=== PATIENT | female | born 1940 | race Caucasian/White ===

== ENCOUNTER → 2017-09-10 09:24 | Outpatient (CLI) | payer MEDICARE, SELFPAY ==
[2017-09-10 11:18] LABS: Hemoglobin A1C% w Est Avg Glu 7.5 % (4.0-6.0)
[2017-09-10 11:28] LABS: Creatinine Urine Random 20.6 mg/dL
[2017-09-10 11:33] LABS: Microalbumi Creatinin Ratio Ur 126.2 ug/mg CR (<30); Microalbumin Urine Random 2.6 mg/dL (0-1.6)
== END ==
PROVIDERS: PCP Internal Medicine; Visit Provider Internal Medicine
DX: E11.9 Type 2 diabetes mellitus without complications (principal)
CPT/HCPCS: 36415; 82043; 82570; 83036

== ENCOUNTER → 2017-11-21 08:59 | Outpatient (CLI) | payer MEDICARE, SELFPAY ==
[2017-11-21 10:44] LABS: Add Manual Diff / Slide Review NO; Basophils Percent Auto 0.8 % (0-2); Eosinophils Percent Auto 2.4 % (2-4); Hematocrit 40.4 % (36-46); Hemoglobin 13.5 g/dL (12.0-16.0); Lymphocytes Percent Auto 23.6 % (25-40); Mean Corpuscular HGB Conc 33.5 % (30-36); Mean Corpuscular Hemoglobin 29.3 PG (26-34); Mean Corpuscular Volume 87.5 fL (80-100); Monocytes Percent Auto 5.6 % (3-14); Neutrophils Absolute Auto 4000 /uL (3000-5900); Neutrophils Percent Auto 67.6 % (50-75); Platelet Count 201 X10^3/uL (150-400); Red Blood Cell Count 4.62 X10^6/uL (4.0-5.2); Red Cell Distribution Width 14.4 % (11.6-14.8)
[2017-11-21 10:45] LABS: Alanine Aminotransferase 37 IU/L (9-52); Albumin 4.3 g/dL (3.5-5.0); Albumin Globulin Ratio 1.7 (1.0-2.8); Alkaline Phosphatase 79 U/L (38-126); Aspartate Aminotransferase 25 IU/L (14-36); Bilirubin Total 0.4 mg/dL (0.2-1.3); Blood Urea Nitrogen 29 mg/dL (7-17); Calcium 9.7 mg/dL (8.4-10.2); Carbon Dioxide 26 mmol/L (22-32); Chloride 104 mmol/L (98-107); Cholesterol 163 mg/dL (140-199); Estimated Glomerular Filt Rate 54.1 mL/min (>60); Globulin 2.6 g/dL (1.7-4.1); Glucose 180 mg/dL (80-110); HDL Cholesterol 49 mg/dL (40-60); HEMOLYSIS 30 (0-50); LDL Cholesterol Calculated 69 mg/dL (<100); Sodium 142 mmol/L (137-145); Total Protein 6.9 g/dL (6.3-8.2); Triglycerides 225 mg/dL (35-150)
[2017-11-21 10:46] LABS: Hemoglobin A1C% w Est Avg Glu 7.8 % (4.0-6.0)
[2017-11-21 10:46] LABS: Creatinine Urine Random 38.3 mg/dL
[2017-11-21 10:55] LABS: Microalbumi Creatinin Ratio Ur 15.6 ug/mg CR (<30); Microalbumin Urine Random < 0.6 mg/dL (0-1.6)
[2017-11-21 11:15] LABS: Thyroid Stimulating Hormone 2.25 uIU/mL (0.47-4.68)
== END ==
PROVIDERS: Family Provider Internal Medicine; PCP Internal Medicine; Visit Provider Internal Medicine
DX: E11.9 Type 2 diabetes mellitus without complications (principal); I10 Essential (primary) hypertension
CPT/HCPCS: 36415; 80053; 80061; 82043; 82570; 83036; 84443; 85025

== ENCOUNTER → 2018-02-11 09:44 | Outpatient (CLI) | payer MEDICARE, SELFPAY ==
[2018-02-11 11:04] LABS: Hemoglobin A1C% w Est Avg Glu 7.7 % (4.0-6.0)
[2018-02-11 11:10] LABS: BUN Creatinine Ratio 25.6 (6-22); Blood Urea Nitrogen 23 mg/dL (7-17); Calcium 9.3 mg/dL (8.4-10.2); Carbon Dioxide 21 mmol/L (22-32); Chloride 101 mmol/L (98-107); Estimated Glomerular Filt Rate > 60.0 mL/min (>60); Glucose 144 mg/dL (80-110); HEMOLYSIS 21 (0-50); Sodium 137 mmol/L (137-145)
== END ==
PROVIDERS: PCP Internal Medicine; Visit Provider Internal Medicine
DX: E11.9 Type 2 diabetes mellitus without complications (principal); I10 Essential (primary) hypertension
CPT/HCPCS: 36415; 80048; 83036

== ENCOUNTER → 2018-09-06 12:04 | Outpatient (CLI) | payer MEDICARE, SELFPAY ==
--- NOTE | 2018-09-06 | DI.RAD.S_ITS ---
PROCEDURE: XR LUMBAR SPINE 2-3V INDICATIONS: LOW BACK PAIN TECHNIQUE: 3 views of the lumbar spine were acquired. COMPARISON: None. FINDINGS: Bones: 5 oxh-eoo-caxndia vertebrae are present. There is normal bony alignment except for slight anterolisthesis, grade 1, of L4 and L5. There is a rudimentary disc space at L5-S1. Facet osteoarthritis is moderately severe to severe at L4-5 and L5-S1.. No vertebral body compression fractures. No suspicious bony lesions. Soft tissues: Overlying bowel gas pattern is normal. No suspicious soft tissue calcifications. IMPRESSION: Moderately severe degenerative disc disease overall, with the most prominent degree of degeneration seen at L3-S1. Slight anterolisthesis of L4 on L5 is associated with prominent facet osteoarthritis allowing ligamentous laxity in this area. No acute or subacute compression fracture is found. Dictated by: Marquis Ceballos M.D. on 09/06/2018 at 14:37 Approved by: Marquis Ceballos M.D. on 09/06/2018 at 14:40
== END ==
PROVIDERS: Family Provider Internal Medicine; PCP Internal Medicine; Visit Provider Internal Medicine
DX: M54.5 Low back pain (principal); M51.16 Intervertebral disc disorders with radiculopathy, lumbar region; M51.17 Intervertebral disc disorders with radiculopathy, lumbosacral region; M47.26 Other spondylosis with radiculopathy, lumbar region; M47.27 Other spondylosis with radiculopathy, lumbosacral region
CPT/HCPCS: 72100

== ENCOUNTER → 2018-09-22 11:17 | Outpatient (CLI) | payer MEDICARE, SELFPAY ==
--- NOTE | 2018-09-22 | DI.RAD.S_ITS ---
PROCEDURE: XR FEMUR RT MIN 2V INDICATIONS: Right HIP PAIN/FEMUR PAIN TECHNIQUE: 4 views of the femur were acquired. COMPARISON: None. FINDINGS: Bones: No fractures or dislocations. No suspicious bony lesions. Mild right hip and knee joint degeneration. Soft tissues: No suspicious soft tissue calcifications or masses. Scattered vascular calcifications. IMPRESSION: No fracture. Dictated by: Graham Mixon M.D. on 09/23/2018 at 10:22 Approved by: Graham Mixon M.D. on 09/23/2018 at 10:24
== END ==
PROVIDERS: Family Provider Internal Medicine; PCP Internal Medicine; Visit Provider Internal Medicine
DX: M25.561 Pain in right knee (principal)
CPT/HCPCS: 73552

== ENCOUNTER → 2018-10-01 10:54 | Outpatient (CLI) | payer MEDICARE, SELFPAY ==
--- NOTE | 2018-10-01 | DI.US.S_ITS ---
PROCEDURE: US ARTERIAL DUPLEX LE RT INDICATIONS: Unspecified atherosclerosis TECHNIQUE: Color and pulse Doppler interrogation was performed of the right lower extremity arterial system, with image documentation. COMPARISON: None. FINDINGS: Common femoral artery: 97 cm/sec, with triphasic flow. Deep femoral artery: 76 cm/sec, with triphasic flow. Proximal superficial femoral artery: 101 cm/sec, with triphasic flow. Mid superficial femoral artery: 98 cm/sec, with triphasic flow. Distal superficial femoral artery: 97 cm/sec, with triphasic flow. Popliteal artery: 76 cm/sec, with triphasic flow. Posterior tibial artery: 71 cm/sec, with triphasic flow. Anterior tibial artery/dorsalis pedis: 69 cm/sec, with triphasic flow. Ferrara-scale imaging description: No hemodynamically significant stenosis of the right lower extremity. A hypoechoic avascular mass is noted within the anterior right thigh tissues which measures 3.4 x 2.3 x 0.6 cm and likely represents a small subcutaneous lipoma. IMPRESSION: 1. No hemodynamically significant stenosis of the right lower extremity. 2. 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 Please note, if there is rapid growth of this lesion, further characterization is warranted to exclude the very rare liposarcoma. Dictated by: Elina Lyon M.D. on 10/02/2018 at 7:59 Approved by: Elina Lyon M.D. on 10/02/2018 at 8:02
== END ==
PROVIDERS: Family Provider Internal Medicine; PCP Internal Medicine; Visit Provider Internal Medicine
DX: I70.90 Unspecified atherosclerosis (principal); M79.651 Pain in right thigh
CPT/HCPCS: 93926

== ENCOUNTER → 2021-01-18 11:48 | Outpatient (CLI) | payer MEDICARE, SELFPAY ==
--- NOTE | 2021-01-18 | DI.US.S_ITS ---
PROCEDURE: US RENAL COMPLETE INDICATIONS: CHRONIC KIDNEY DISEASE STAGE 3B TECHNIQUE: Real-time scanning was performed of the kidneys and bladder, with image documentation. COMPARISON: [facility], CT, ABDOMEN/PELVIS WITH CONTRAST, 05/30/2012, 10:25. FINDINGS: Kidneys: Right kidney measures 8.2 cm long; left kidney measures 10 cm long. Right renal cortical thickness is 1 cm; left renal cortical thickness is 1.1 cm. Renal cortical echotexture is normal. No hydronephrosis or nephrolithiasis. No suspicious solid mass lesions. Bladder: Pre-void bladder volume is 221.1 mL. Post-void residual is 0 mL. Pre-void images demonstrate no intraluminal masses or stones. On pre-void images, no ureteral jets are noted with color Doppler interrogation. (Of note, ureteral jets may not be detectable in up to 25% of cases due to insufficient differences in specific gravity between ureteral and bladder urine). Miscellaneous: No free pelvic fluid. IMPRESSION: No evidence of obstructive uropathy. Dictated by: Ean Santos M.D. on 01/18/2021 at 14:04 Approved by: Ean Santos M.D. on 01/18/2021 at 14:07
== END ==
PROVIDERS: Family Provider Internal Medicine; PCP Internal Medicine; Referring Provider Internal Medicine; Visit Provider Internal Medicine
DX: N18.32 Chronic kidney disease, stage 3b (principal)
CPT/HCPCS: 76770

== ENCOUNTER → 2021-10-21 16:30 | Outpatient (CLI) | payer MEDICARE, SELFPAY ==
[2021-10-21 17:12] LABS: Add Manual Diff / Slide Review NO; Basophils Absolute Auto 0 /uL (0-100); Basophils Percent Auto 0.4 % (0-2); Eosinophils Absolute Auto 200 /uL (0-450); Eosinophils Percent Auto 2.5 % (2-4); Hematocrit 36.2 % (36-46); Hemoglobin 12.2 g/dL (12.0-16.0); Lymphocytes Absolute Auto 1800 /uL (1100-4500); Lymphocytes Percent Auto 27.2 % (25-40); Mean Corpuscular HGB Conc 33.8 % (30-36); Mean Corpuscular Hemoglobin 29.5 PG (26-34); Mean Corpuscular Volume 87.3 fL (80-100); Monocytes Absolute Auto 400 /uL (0-900); Monocytes Percent Auto 6.6 % (3-14); Neutrophils Absolute Auto 4200 /uL (1500-7000); Neutrophils Percent Auto 63.3 % (50-75); Platelet Count 219 X10^3/uL (150-400); Red Blood Cell Count 4.15 X10^6/uL (4.0-5.2); Red Cell Distribution Width 15.5 % (11.6-14.8); White Blood Cell Count 6.7 X10^3/uL (4.5-11.0)
[2021-10-21 17:53] LABS: Alanine Aminotransferase 42 IU/L (<35); Albumin 4.2 g/dL (3.5-5.0); Albumin Globulin Ratio 1.7 (1.0-2.8); Alkaline Phosphatase 81 U/L (38-126); Amylase 54 U/L (30-110); Aspartate Aminotransferase 28 IU/L (14-36); BUN Creatinine Ratio 22.4 (6-22); Bilirubin Total 0.2 mg/dL (0.2-1.3); Blood Urea Nitrogen 24 mg/dL (7-17); Calcium 9.3 mg/dL (8.4-10.2); Carbon Dioxide 22 mmol/L (22-32); Chloride 102 mmol/L (98-107); Estimated Glomerular Filt Rate 53 mL/min (>60); Globulin 2.5 g/dL (1.7-4.1); Glucose 157 mg/dL (80-110); HEMOLYSIS < 15 (0-50); Potassium 4.7 mmol/L (3.4-5.1); Sodium 135 mmol/L (137-145); Total Protein 6.7 g/dL (6.3-8.2)
== END ==
PROVIDERS: Family Provider Internal Medicine; PCP Internal Medicine; Referring Provider Internal Medicine; Visit Provider Internal Medicine
DX: R10.11 Right upper quadrant pain (principal)
CPT/HCPCS: 36415; 80053; 82150; 85025

== ENCOUNTER → 2021-10-23 13:19 | Outpatient (CLI) | payer MEDICARE, SELFPAY ==
--- NOTE | 2021-10-23 | DI.CT.S_ITS ---
PROCEDURE: CT ABDOMEN PELVIS W CON INDICATIONS: Right upper quadrant pain TECHNIQUE: After the administration of oral and IV contrast, axial sections were acquired from the lung bases to the pubic symphysis. Coronal and sagittal reformats were performed. For radiation dose reduction, the following was used: automated exposure control, adjustment of mA and/or kV according to patient size. COMPARISON: [facility], CT, ABDOMEN/PELVIS WITH CONTRAST, 05/30/2012, 10:25. FINDINGS: Image quality: Excellent. Lung bases: Unremarkable. Heart: No significant findings. ABDOMEN: Liver: No focal lesion. Gallbladder: Absent. Biliary ducts: Not dilated. Pancreas: Fatty atrophy. Small calcifications at the head of the pancreas, (2/30), unchanged. This suggests chronic calcific pancreatitis. No peripancreatic fluid collection. Spleen: Unremarkable. Adrenal Glands: No nodule. Kidneys and Ureters: No hydronephrosis. Stomach and Bowel: Stomach, small bowel loops, and colon are unremarkable. Diverticulosis. Normal appendix. Peritoneum: No abnormal intraperitoneal fluid. No free air. Ventral Wall: No hernia. Abdominal Nodes: No retroperitoneal or mesenteric adenopathy by size criteria. Vessels: Aorta and inferior vena cava are normal in size. Moderate plaque. PELVIS: Pelvic Organs: Small right ovarian cyst measuring 1.5 cm. Retroverted uterus. Bladder: Unremarkable. Pelvic Nodes: No enlarged lymph nodes. Miscellaneous: No inguinal hernias are seen. Bones: No compression fracture. Bones appear osteopenic. Multilevel DDD. IMPRESSION: 1. No acute abnormality. No free fluid. 2. Findings of chronic calcific pancreatitis. No peripancreatic fluid collection. 3. Diverticulosis. Normal appendix. Dictated by: Chato Jaeger M.D. on 10/23/2021 at 18:40 Approved by: Chato Jaeger M.D. on 10/23/2021 at 18:52
== END ==
PROVIDERS: Family Provider Internal Medicine; PCP Internal Medicine; Referring Provider Internal Medicine; Visit Provider Internal Medicine
DX: R10.11 Right upper quadrant pain (principal); K57.90 Diverticulosis of intestine, part unspecified, without perforation or abscess without bleeding; N83.201 Unspecified ovarian cyst, right side
CPT/HCPCS: 74177; Q9967

== ENCOUNTER 2021-10-30 09:25 | Emergency (ER) | payer MEDICARE, SELFPAY ==
[2021-10-30] VITALS (16 sets, daily range): BP systolic 144–208; BP diastolic 69–93; PULSE 58–68; RESP 12–24; TEMP 36.8; O2SAT 97–100; BMI 33.8
--- NOTE | 2021-10-30 10:25 | ED_ITS ---
HPI - Abdominal Pain General Chief Complaint: Abdominal Pain Stated Complaint: Abd pain- states calcification in pancreas Time Seen by Provider: 10/30/21 10:24 Source: patient Mode of arrival: Ambulatory History of Present Illness HPI narrative: Patient is a 81-year-old female history of diabetes hypertension cholecystectomy presenting today with his epigastric pain. Decent been ongoing for a month. She has not been seen in the ED but did see her PCP who ordered an outpatient CT which showed calcification of the pancreas. She said yesterday her pain got to be significantly worse she describes as a pinching today she says it is not so bad. She denies any nausea vomiting no fever or chills. No real chest pain just stays in her epigastric region. Denies any alcohol use. Related Data Home Medications Medication Instructions Recorded Confirmed ASPIRIN (#ASPIR 81) 81 mg PO Q DAY ##0 04/14/11 02/15/18 CHOLECALCIFEROL (VITAMIN D3) 400 iu PO Q DAY ##0 04/14/11 02/15/18 (VITAMIN D) Calcium Carbonate/Vitamin D 1 cap PO Q DAY ##0 04/14/11 02/15/18 (#CALCIUM) Coenzyme Q10 (#COQ10) 30 mg PO ##0 04/14/11 02/15/18 MULTIVITAMIN (One Daily 1 tab PO Q DAY ##0 04/14/11 02/15/18 Multivitamin) nystatin 100,000 unit/mL oral 5 ml PO TID-QID ##240 06/11/16 02/15/18 suspension Previous Rx's Medication Instructions Recorded Ketoconazole 1 noe topical BID ##30 06/11/16 zoster vaccine live (PF) 19,400 0.5 ml SQ X1 #1 mL 09/08/16 unit/0.65 mL subcutaneous suspension (Zostavax (PF)) [CMP Estradiol 0.2%] 0 vaginal SEE INSTRUCTIONS ##30 02/25/17 Glucose: Test Strips 0 str QDAY ##100 05/26/17 Lancets ea QDAY ##100 05/26/17 nystatin 100,000 unit/mL oral 5 ml PO QIDP PRN #480 mL 06/22/17 suspension fluticasone propionate 50 1 spray intranasal DAILY #16 grams 11/30/17 mcg/actuation nasal spray,suspension varicella-zoster glycoE [id number] 0.5 ml IM ONCE #1 ea 11/30/17 adj(PF) 50 mcg/0.5 mL IM susp, kit (Shingrix (PF)) glipizide 5 mg tablet 15 mg PO BID #360 tabs 02/15/18 losartan 50 mg tablet (Cozaar) 50 mg PO DAILY #90 tabs 02/15/18 metformin 850 mg tablet 850 mg PO TID #360 tabs 02/15/18 Allergies Allergy/AdvReac Type Severity Reaction Status Date / Time iodine Allergy Severe NUMBNESS Unverified 11/30/17 10:13 TONGUE/HANDS/CONFUSION shellfish derived Allergy Severe CONFUSION/NUMBNESS Unverified 11/30/17 10:13 HANDS AND TONGUE - SHRIMP lisinopril AdvReac Mild COUGH Unverified 11/30/17 10:13 oxycodone AdvReac Mild NIGHTMARES Unverified 11/30/17 10:13 Review of Systems Review of Systems Narrative: GENERAL: Denies chills, fatigue, malaise, fever, sweats, travel HEENT: Denies sinus pain, ear pain, sore throat, difficulty swallowing, neck pain RESPIRATORY: Denies dyspnea, cough, wheezing, hemoptysis, sputum. CARDIOVASCULAR: Denies chest pain, palpitations, orthopnea, edema GASTROINTESTINAL: See HPI : Denies dysuria, frequency, incontinence, hematuria, urinary retention, flank pain. MUSCULOSKELETAL: Denies weakness, joint pain, or bony pain SKIN: No rash, no erythema, no pruritus NEUROLOGIC: Denies weakness, dizziness, headache, numbness, change in speech, confusion PSYCHIATRIC: No concerning psychosocial issues. 12 point review of systems is negative except for those stated above and HPI Patient History Medical History Abnormal Pap smear of cervix Diabetes mellitus Hyperlipidemia Hypertension Lichen sclerosus Post menopausal syndrome Surgical History Anesthesia History of biopsy (~05/13/11) History of breast biopsy (~2003) History of lumpectomy History of tonsillectomy and adenoidectomy (~1965) Status post laparoscopic cholecystectomy (05/27/05) Surgical procedure planned Surgical procedure planned (~04/2013) Umbilical hernia (~05/27/05) Ventral incisional hernia (~01/26/07) Family History Brother Suicide Hyperlipidemia Hypertension Father CAD (coronary artery disease) Hyperlipidemia Hypertension Mother Diabetes mellitus Sister Hyperlipidemia Sister Rheumatic fever Social History Smoking Status: Never smoker Smoking Status: Never smoker Exam Initial Vital Signs Initial Vital Signs: Vital Signs Pulse Rate 68 10/30/21 09:41 Pulse Oximetry 99 10/30/21 09:41 GENERAL: Alert pleasant 81-year-old female and in no acute distress. HEENT: Head atraumatic,EOMI, pupils reactive, face symmetric, moist mucous membranes CARDIOVASCULAR: Regular rate and rhythm without murmurs, rubs or gallops. RESPIRATORY: Breath sounds equal bilaterally, no wheezes rales or rhonchi. ABDOMEN: Soft, tender epigastric region no guarding no rebound negative Mandel sign EXTREMITIES: Normal range of motion, no clubbing or edema. Neurovascularly intact NEUROLOGICAL: Alert and oriented x4.Normal gait and speech. SKIN: Warm, dry, no laceration, no petechiae, no rashes or lesions. Course Orders Ordered: ED Orders 10/30/21 10:19 Comprehensive Metabolic Panel Stat Lipase Stat Troponin & CK Cardiac Panel Stat 10/30/21 10:30 XR chest 1V Stat 10/30/21 12:20 Complete Blood Count AUTO DIFF Stat 10/30/21 13:10 CT abdomen pelvis wo con Stat Discontinued Medications Acetaminophen (Acetaminophen 325 Mg Tablet) 650 mg PO NOW ONE Stop: 10/30/21 13:51 Last Admin: 10/30/21 13:56 Dose: 650 mg Documented By: LAURA Sodium Chloride (Normal Saline 0.9%) 1,000 mls @ 150 mls/hr IV CONT SHEN Last Infusion: 10/30/21 13:10 Dose: 0 mls/hr Documented By: Admin: 10/30/21 11:23 Dose: 150 mls/hr Documented By: LAURA Vital Signs Vital signs: Vital Signs - 8 hr 10/30/21 11:30 10/30/21 11:52 10/30/21 11:52 Pulse Rate 59 L 66 Respiratory Rate 16 24 Blood Pressure 198/84 H Pulse Oximetry 97 99 10/30/21 12:00 10/30/21 12:01 10/30/21 12:01 Pulse Rate 58 L 58 L Respiratory Rate 16 18 Blood Pressure 182/76 H Pulse Oximetry 99 99 10/30/21 12:30 10/30/21 12:32 10/30/21 12:32 Pulse Rate 63 66 Respiratory Rate 17 23 Blood Pressure 194/80 H Pulse Oximetry 99 100 10/30/21 13:00 10/30/21 13:01 10/30/21 13:01 Pulse Rate 65 64 Respiratory Rate 22 22 Blood Pressure 208/88 H Pulse Oximetry 99 99 10/30/21 13:49 10/30/21 13:57 10/30/21 13:57 Pulse Rate 63 Respiratory Rate 13 Blood Pressure 206/74 H Pulse Oximetry 98 98 10/30/21 14:08 Pulse Rate Respiratory Rate Blood Pressure 187/80 H Pulse Oximetry MDM - Abdominal Pain Lab Data Result diagrams: 10/30/21 12:20 10/30/21 10:19 Labs: Lab Results 10/30/21 10/30/21 10/30/21 Range/Units 10:19 10:19 12:20 WBC 6.3 (4.5-11.0) X10^3/uL RBC 3.88 L (4.0-5.2) X10^6/uL Hgb 11.6 L (12.0-16.0) g/dL Hct 34.1 L (36-46) % MCV 88.1 (80-100) fL MCH 29.9 (26-34) PG MCHC 33.9 (30-36) % RDW 15.6 H (11.6-14.8) % Plt Count 160 (150-400) X10^3/uL Neut % (Auto) 58.2 (50-75) % Lymph % (Auto) 31.2 (25-40) % [place] % (Auto) 7.2 (3-14) % Eos % (Auto) 2.8 (2-4) % Baso % (Auto) 0.6 (0-2) % Neut # (Auto) 3700 (2644-6055) /uL Lymph # (Auto) 2000 (5101-1138) /uL [place] # (Auto) 500 (0-900) /uL Eos # (Auto) 200 (0-450) /uL Baso # (Auto) 0 (0-100) /uL Sodium Cancelled 133 L Potassium Cancelled 5.1 Chloride Cancelled 102 Carbon Dioxide Cancelled 24 BUN Cancelled 24 H Creatinine Cancelled 1.03 Estimated GFR Cancelled 55 L BUN/Creatinine Ratio Cancelled 23.3 H Glucose Cancelled 142 H Calcium Cancelled 8.7 Total Bilirubin Cancelled 0.5 AST Cancelled 28 ALT Cancelled 26 Alkaline Phosphatase Cancelled 66 Total Creatine Kinase 37 (30-135) U/L CK-MB (CK-2) TNP CK-MB (CK-2) Rel Index TNP Troponin I < 0.012 (0.01-0.034) ng/mL Total Protein Cancelled 6.3 Albumin Cancelled 3.8 Globulin Cancelled 2.5 Albumin/Globulin Ratio Cancelled 1.5 Lipase Cancelled 109 Point of care testing: Urine Dip Bedside Urine Glucose Negative Bedside Urine Bilirubin - Negative Bedside Urine Ketone - Negative Urine Specific B[place] 1.01 Bedside Urine Occult Blood +/- Bedside Urine pH 6 Bedside Urine Protein - Negative Bedside Urine Urobilinogen - Negative Bedside Urine Nitrite - Negative Bedside Urine Leukocytes - Negative Esterase Imaging Data CT scan - abdomen/pelvis: Radiologist's Impression: [address] [place] [address] CT Scan Report Signed Patient: Breanna Woodson MR#: [id number] : 1940 Acct:[id number] Age/Sex: 81 / F Date of Service: 10/30/21 Loc: ED Accession Number: [id number] ?? Procedure: CT abdomen pelvis wo con Ordering Provider: Bisi Forman D.O. PROCEDURE:? CT ABDOMEN PELVIS WO CON ? INDICATIONS:? ruq pain ? TECHNIQUE:? Axial sections were acquired from the lung bases to the pubic symphysis.? Coronal and sagittal reformats were performed.? For radiation dose reduction, the following was used: ?automated exposure control, adjustment of mA and/or kV according to patient size.? ? COMPARISON:? [facility], CT, ABDOMEN/PELVIS WITH CONTRAST, 05/30/2012, 10:25.? [facility], CT, CT ABDOMEN PELVIS W CON, 10/23/2021, 14:47. ? FINDINGS:? Image quality:? Excellent.? ? Lung bases:? Unremarkable.? ? Heart:? No significant findings. ? URINARY: Right Kidney: ? No stones or hydronephrosis.? Right Ureter:? No hydroureter.? ? Left Kidney: ? No stones or hydronephrosis. Left Ureter:? No hydroureter.? ? Bladder:? Distended. No stones. ? ? ? ABDOMEN: Liver:? Unremarkable.? ? Gallbladder:? Absent.? ? Biliary ducts:? CBD is at the upper limits of normal.? Small calcifications in the region of the distal CBD or pancreatic head.? Calcification is seen in this region dating back to 2013. Pancreas:? Fatty atrophy.? No peripancreatic fluid collection. Spleen:? Unremarkable.? ? Adrenal Glands:? No nodule. ? Stomach and Bowel:? Stomach, small bowel loops, and colon are unremarkable.? Diverticulosis.? Normal appendix. Peritoneum:? No abnormal intraperitoneal fluid.? No free air.? ? Ventral Wall: ? No hernia.? Abdominal Nodes:? No enlarged retroperitoneal or mesenteric lymph nodes.? Vessels:? Aorta and inferior vena cava are normal in size.? ? PELVIS: Pelvic Organs:? No free fluid.? Postmenopausal uterus.? ? Pelvic Nodes: Unremarkable. Miscellaneous: No inguinal hernias are seen. ? ? ? Bones:? No suspicious lesion.? No compression fractures.? Multilevel DDD. ? IMPRESSION:? 1. No acute abnormality identified.? No free fluid. ? 2. Calcifications in the region of the pancreatic head/distal CBD.? This could be due to sequelae of chronic calcific pancreatitis or choledocholithiasis.? Recommend correlation with LFTs and bilirubin.? If bilirubin is elevated MRCP could be performed for further evaluation to exclude choledocholithiasis. ? 3. No kidney stones.? No hydronephrosis. ? 4. Diverticulosis.? Normal appendix.? Post cholecystectomy. ? ? ? Dictated by: Chato Jaeger M.D. on 10/30/2021 at 13:26 ? ? Approved by: Chato Jaeger M.D. on 10/30/2021 at 13:36? Chest x-ray: Radiologist's Impression: XRay Report Signed Patient: Breanna Woodson MR#: [id number] : 1940 Acct:[id number] Age/Sex: 81 / F Date of Service: 10/30/21 Loc: ED Accession Number: [id number] ?? Procedure: XR chest 1V Ordering Provider: Bisi Forman D.O. PROCEDURE:? XR CHEST 1V ? INDICATIONS:? chest pain ? TECHNIQUE:? One view of the chest was acquired.? ? COMPARISON:? None. ? FINDINGS:? ? Surgical changes and devices:? None.? ? Lungs and pleura:? Lungs are clear.? No pleural effusions or pneumothorax.? ? Mediastinum:? Mediastinal contours appear normal.? Heart size is normal.? ? Bones and chest wall:? No suspicious bony lesions.? Overlying soft tissues appear unremarkable.? ? IMPRESSION:? No acute cardiopulmonary pathology. ? ? Dictated by: Elmer Gonzalez M.D. on 10/30/2021 at 10:43 ? ? ECG Data Interpretation: Normal sinus rhythm rate 64 SD interval 148 QRS [address] changes or T- wave inversions MDM Narrative Medical decision making narrative: The patient has has some right upper quadrant pain. This is where she has her most pain. Blood work is overall during. No elevation of bilirubin liver enzymes or lipase. CT confirms a chronic ongoing calcified pancreatitis, not sure if this is actually causing her pain and discomfort. She is offered morphine for pain however she declines and takes Tylenol instead. She says she does not want anything stronger for pain. Cardiac workup is negative including EKG and troponin. At this time recommend outpatient follow-up with PCP. May need surgery referral if she continues to have problems. Discharge Plan Departure Patient Disposition: Home Clinical Impression: Pancreatic calcification Instructions: Chronic Pancreatitis Activity Restrictions/Additional Instructions: *You have been diagnosed with chronic pancreatitis *What to do: You do have calcification on her pancreas which may may not be causing some of ear pain. However your blood work is overall reassuring. *Continue to take medications as directed *Follow up with your primary care provider in 2-3 days or call [phone] *Return to ER if you should have persistent pain persistent vomiting or any new, worsening or concerning symptoms Prescriptions: No Action Calcium Carbonate/Vitamin D (#CALCIUM) 1 cap PO Q DAY Qty: 0 MULTIVITAMIN (One Daily Multivitamin) 1 tab PO Q DAY Qty: 0 CHOLECALCIFEROL (VITAMIN D3) (VITAMIN D) 400 iu PO Q DAY Qty: 0 Coenzyme Q10 (#COQ10) 30 mg PO Qty: 0 ASPIRIN (#ASPIR 81) 81 mg PO Q DAY Qty: 0 nystatin 100,000 UNIT/1 ML suspension 5 ml PO TID-QID Qty: 240 Ketoconazole 1 noe Topical BID Qty: 30 3RF zoster vaccine live (PF) [Zostavax (PF)] 19,400 UNIT/0.65 ML suspension for reconstitution 0.5 ml SQ X1 Qty: 1 0RF [CMP Estradiol 0.2%] 0 Vaginal SEE INSTRUCTIONS Qty: 30 1RF Glucose: Test Strips 0 str QDAY Qty: 100 PRNRF Lancets QDAY Qty: 100 PRNRF nystatin 100,000 UNIT/1 ML suspension 5 ml PO QIDP PRNQty: 480 3RF fluticasone propionate 50 mcg/actuation spray,suspension 1 spray NASAL DAILY Qty: 16 3RF Rx Instructions: administer into each nostril varicella-zoster [id number]-AS01B (PF) [Shingrix (PF)] 50 mcg/0.5 mL suspension for reconstitution 0.5 ml IM ONCE Qty: 1 0RF losartan [Cozaar] 50 mg tablet 50 mg PO DAILY Qty: 90 3RF metformin 850 mg tablet 850 mg PO TID Qty: 360 1RF glipizide 5 mg tablet 15 mg PO BID Qty: 360 1RF Referrals: Angie Natarajan ARNP [Primary Care Provider] - Visit Report Forms: Patient Portal/API
--- NOTE | 2021-10-30 10:30 | DI.RAD.S_ITS ---
PROCEDURE: XR CHEST 1V INDICATIONS: chest pain TECHNIQUE: One view of the chest was acquired. COMPARISON: None. FINDINGS: Surgical changes and devices: None. Lungs and pleura: Lungs are clear. No pleural effusions or pneumothorax. Mediastinum: Mediastinal contours appear normal. Heart size is normal. Bones and chest wall: No suspicious bony lesions. Overlying soft tissues appear unremarkable. IMPRESSION: No acute cardiopulmonary pathology. Dictated by: Elmer Gonzalez M.D. on 10/30/2021 at 10:43 Approved by: Elmer Gonzalez M.D. on 10/30/2021 at 10:43
[2021-10-30 10:51] LABS: Alanine Aminotransferase 26 IU/L (<35); Albumin 3.8 g/dL (3.5-5.0); Albumin Globulin Ratio 1.5 (1.0-2.8); Alkaline Phosphatase 66 U/L (38-126); Aspartate Aminotransferase 28 IU/L (14-36); BUN Creatinine Ratio 23.3 (6-22); Bilirubin Total 0.5 mg/dL (0.2-1.3); Blood Urea Nitrogen 24 mg/dL (7-17); Calcium 8.7 mg/dL (8.4-10.2); Carbon Dioxide 24 mmol/L (22-32); Chloride 102 mmol/L (98-107); Creatine Kinase 37 U/L (30-135); Estimated Glomerular Filt Rate 55 mL/min (>60); Globulin 2.5 g/dL (1.7-4.1); Glucose 142 mg/dL (80-110); Lipase 109 U/L (23-300); Potassium 5.1 mmol/L (3.4-5.1); Sodium 133 mmol/L (137-145); Total Protein 6.3 g/dL (6.3-8.2)
[2021-10-30 10:53] LABS: HEMOLYSIS 57 (0-50)
[2021-10-30 11:02] LABS: Troponin I < 0.012 ng/mL (0.01-0.034)
[2021-10-30] MEDS: SODIUM CHLORIDE 0.9% 1,000 ML 150 ML IV (11:23)
[2021-10-30 12:29] LABS: Add Manual Diff / Slide Review NO; Basophils Absolute Auto 0 /uL (0-100); Basophils Percent Auto 0.6 % (0-2); Eosinophils Absolute Auto 200 /uL (0-450); Eosinophils Percent Auto 2.8 % (2-4); Hematocrit 34.1 % (36-46); Hemoglobin 11.6 g/dL (12.0-16.0); Lymphocytes Absolute Auto 2000 /uL (1100-4500); Lymphocytes Percent Auto 31.2 % (25-40); Mean Corpuscular HGB Conc 33.9 % (30-36); Mean Corpuscular Hemoglobin 29.9 PG (26-34); Mean Corpuscular Volume 88.1 fL (80-100); Monocytes Absolute Auto 500 /uL (0-900); Monocytes Percent Auto 7.2 % (3-14); Neutrophils Absolute Auto 3700 /uL (1500-7000); Neutrophils Percent Auto 58.2 % (50-75); Platelet Count 160 X10^3/uL (150-400); Red Blood Cell Count 3.88 X10^6/uL (4.0-5.2); Red Cell Distribution Width 15.6 % (11.6-14.8); White Blood Cell Count 6.3 X10^3/uL (4.5-11.0)
--- NOTE | 2021-10-30 13:10 | DI.CT.S_ITS ---
PROCEDURE: CT ABDOMEN PELVIS WO CON INDICATIONS: ruq pain TECHNIQUE: Axial sections were acquired from the lung bases to the pubic symphysis. Coronal and sagittal reformats were performed. For radiation dose reduction, the following was used: automated exposure control, adjustment of mA and/or kV according to patient size. COMPARISON: [facility], CT, ABDOMEN/PELVIS WITH CONTRAST, 05/30/2012, 10:25. [facility], CT, CT ABDOMEN PELVIS W CON, 10/23/2021, 14:47. FINDINGS: Image quality: Excellent. Lung bases: Unremarkable. Heart: No significant findings. URINARY: Right Kidney: No stones or hydronephrosis. Right Ureter: No hydroureter. Left Kidney: No stones or hydronephrosis. Left Ureter: No hydroureter. Bladder: Distended. No stones. ABDOMEN: Liver: Unremarkable. Gallbladder: Absent. Biliary ducts: CBD is at the upper limits of normal. Small calcifications in the region of the distal CBD or pancreatic head. Calcification is seen in this region dating back to 2012. Pancreas: Fatty atrophy. No peripancreatic fluid collection. Spleen: Unremarkable. Adrenal Glands: No nodule. Stomach and Bowel: Stomach, small bowel loops, and colon are unremarkable. Diverticulosis. Normal appendix. Peritoneum: No abnormal intraperitoneal fluid. No free air. Ventral Wall: No hernia. Abdominal Nodes: No enlarged retroperitoneal or mesenteric lymph nodes. Vessels: Aorta and inferior vena cava are normal in size. PELVIS: Pelvic Organs: No free fluid. Postmenopausal uterus. Pelvic Nodes: Unremarkable. Miscellaneous: No inguinal hernias are seen. Bones: No suspicious lesion. No compression fractures. Multilevel DDD. IMPRESSION: 1. No acute abnormality identified. No free fluid. 2. Calcifications in the region of the pancreatic head/distal CBD. This could be due to sequelae of chronic calcific pancreatitis or choledocholithiasis. Recommend correlation with LFTs and bilirubin. If bilirubin is elevated MRCP could be performed for further evaluation to exclude choledocholithiasis. 3. No kidney stones. No hydronephrosis. 4. Diverticulosis. Normal appendix. Post cholecystectomy. Dictated by: Chato Jaeger M.D. on 10/30/2021 at 13:26 Approved by: Chato Jaeger M.D. on 10/30/2021 at 13:36
[2021-10-30] MEDS: ACETAMINOPHEN 325 MG TABLET 650 MG PO (13:56)
== END 2021-10-30 14:09 | disposition home or self-care (01) ==
PROVIDERS: Emergency Provider Emergency Medicine; Family Provider Internal Medicine; PCP Internal Medicine
DX: K86.89 Other specified diseases of pancreas (principal); R07.9 Chest pain, unspecified
CPT/HCPCS: 36415; 71045; 74176; 80053; 81003; 82550; 83690; 84484; 85025; 93005; 93010; 99284

== ENCOUNTER → 2021-11-20 15:56 | Outpatient (CLI) | payer MEDICARE, SELFPAY ==
--- NOTE | 2021-11-20 | DI.MRI.S_ITS ---
PROCEDURE: MR ABDOMEN WO/W CON INDICATIONS: other specified diseases of pancreas TECHNIQUE: Coronal HASTE, axial 2D FLASH in- and [id number]; axial breath-hold T2 FSE with fat saturation from the hepatic dome to the iliac crests. Oblique coronal thin-slice and radial thick slab HASTE through the biliary system. Dynamic axial VIBE during administration of contrast. Post-contrast coronal VIBE or 2D FLASH with fat saturation from the hepatic dome to the iliac crests. Optional diffusion weighted imaging and ADC may be performed. COMPARISON: [facility], CT, CT ABDOMEN PELVIS W CON, 10/23/2021, 14:47. [facility], CT, CT ABDOMEN PELVIS WO CON, 10/30/2021, 13:18. FINDINGS: Image quality: Adequate. Pancreas and biliary system: No dilation of the main pancreatic duct. A few small cysts are present within the pancreas, for example a 1.7 cm cyst at the head/uncinate process (coronal T2 haste fat sat series 6, image 10). This finding may communicate with the main duct. At the anterior pancreatic body/tail, directed inferiorly, a 1.4 cm linear/serpiginous cystic structure is present (series 6, image 3) acute represents a cystic lesion or dilated/ectatic branch duct. Anatomical variation of the main pancreatic duct is present with the main duct looping inferiorly, posteriorly, and then cephalad before terminating in the region of the minor papilla. No definite evidence of a solid pancreatic mass. Fatty atrophy of the pancreas is present as seen previously. No biliary ductal dilation demonstrated. No definite choledocholithiasis. Calcifications near the ampulla visualized on prior CT are not well seen by MRI, as is typical for calcification. Solid organs: There is diffuse signal loss on [id number] images compatible with hepatic steatosis. Gallbladder is absent. Spleen is normal in size and enhancement. No adrenal nodules. No hydronephrosis. Nodes and vessels: No retroperitoneal or mesenteric adenopathy by size criteria. Aorta and inferior vena cava are normal in size. Bowel and peritoneum: Unenhanced bowel loops are normal in caliber throughout. No free fluid. Lung bases: No basal pleural effusions. Bones and soft tissues: Bone marrow is normal in overall signal. IMPRESSION: 1. No biliary ductal dilation or evidence of choledocholithiasis. 2. Prior cholecystectomy. 3. No dilation of the main pancreatic duct demonstrated. 4. Several small pancreatic cysts and/or dilated side branch ducts are present. These are nonspecific but could potentially represent side branch IPMNs. Imaging follow-up could be obtained in 2 years per ACR incidental findings guidelines for patients at or near 80 years of age at the time of cyst detection. Dictated by: Teo Wilcox M.D. on 11/21/2021 at 15:19 Approved by: Teo Wilcox M.D. on 11/21/2021 at 15:51
== END ==
PROVIDERS: Family Provider Internal Medicine; PCP Internal Medicine; Referring Provider Internal Medicine; Visit Provider Internal Medicine
DX: K86.89 Other specified diseases of pancreas (principal); K86.2 Cyst of pancreas
CPT/HCPCS: 74183; A9579

== ENCOUNTER → 2021-11-27 12:31 | Outpatient (CLI) | payer MEDICARE, SELFPAY ==
--- NOTE | 2021-11-27 12:32 | DI.US.S_ITS ---
PROCEDURE: US ABDOMEN COMPLETE INDICATIONS: RIGHT UPPER QUADRANT PAIN TECHNIQUE: Real-time scanning was performed of the abdominal and retroperitoneal organs, with image documentation. COMPARISON: CT of the abdomen and pelvis without contrast 10/30/2021. FINDINGS: Liver: There is mild diffuse fatty infiltration of the liver present without evidence for focal liver lesions seen. Gallbladder: Patient is status post cholecystectomy. Biliary ducts: Intrahepatic bile ducts are non-dilated. Extrahepatic bile duct caliber measures 4.7 mm. Normal is 6-7 mm or less in diameter, or 10 mm or less post-cholecystectomy. Pancreas: There is prominence of the pancreatic head with some calcifications present. This was noted by prior CT scan. If further evaluation is clinically indicated an MRCP may be of further clinical value. Spleen: Spleen is normal in size and homogeneous in echotexture. Kidneys: Kidneys are normal in size and echotexture. Right kidney measures 9.2 cm long; left kidney measures 9.3 cm long. No hydronephrosis or nephrolithiasis. No solid masses. Aorta: Visualized aorta is normal in caliber at less than 3 cm. Iliacs: Ileus are not well visualized secondary to overlying bowel gas. IVC: Intrahepatic inferior vena cava is patent. Miscellaneous: No free abdominal fluid. IMPRESSION: 1. Status post cholecystectomy. 2. Mild diffuse fatty infiltration of the liver. 3. Heterogeneous mildly enlarged pancreatic head with some calcifications present. Given ultrasound and CT findings if further evaluation is clinically indicated a MRCP with and without intravenous gadolinium may be of further clinical value. Dictated by: Sancho Villalobos M.D. on 11/27/2021 at 16:54 Approved by: Sancho Villalobos M.D. on 11/27/2021 at 17:01
== END ==
PROVIDERS: Family Provider Internal Medicine; PCP Internal Medicine; Referring Provider Internal Medicine; Visit Provider Internal Medicine
DX: R10.11 Right upper quadrant pain (principal); K76.0 Fatty (change of) liver, not elsewhere classified; Q45.3 Other congenital malformations of pancreas and pancreatic duct; K86.89 Other specified diseases of pancreas; Z90.49 Acquired absence of other specified parts of digestive tract
CPT/HCPCS: 76700

== ENCOUNTER → 2021-12-12 10:14 | Outpatient (CLI) | payer MEDICARE, SELFPAY ==
[2021-12-12 10:59] LABS: COVID19 -Nasal RAPID Negative (Negative)
== END ==
PROVIDERS: Family Provider Internal Medicine; PCP Internal Medicine; Visit Provider Surgery
DX: Z01.812 Encounter for preprocedural laboratory examination (principal); Z20.822 Contact with and (suspected) exposure to COVID-19
CPT/HCPCS: 87635; C9803

== ENCOUNTER 2021-12-13 10:55 | Day surgery (SDC) | payer MEDICARE, SELFPAY ==
[2021-12-12 15:12] VITALS: BMI 33.6
--- NOTE | 2021-12-13 | PATH_ITS ---
[facility] Accession Number: [id number] . 01 Material submitted: . abdomen - ABDOMINAL LIPOMA . 01 Diagnosis: Abdomen, Excision: Mature fibroadipose tissue, consistent with lipoma. [facility] 12/19/2021 0913 Local . 01 Electronically signed: . Juan Ramon Leal MD, Dermatopathologist NPI- [id number] . 01 Gross description: . ABDOMINAL LIPOMA: Received in formalin is 1 fragment of maya soft tissue measuring 5.0 x 2.2 x 1.2 cm. Tissue is inked. Specimen is sectioned and submitted in denial management representative sections in 2 cassettes. /FRANCIS 12/17/2021 1904 Local . 01 Pathologist provided ICD-10: D17.9 . 01 CPT . 473142 Specimen Comment: A courtesy copy of this report has been sent to Pathology Performed at: 01 [facility] [address] [place] [address], [place], [place] [id number] MD Ag Oquendo MD Phone: [phone]
[2021-12-13 11:46] VITALS: BMI 33.6
[2021-12-13 11:48] VITALS: BP 155/76; PULSE 88; RESP 16; TEMP 36.3; O2SAT 98
[2021-12-13] MEDS: LACTATED RINGERS 1,000 ML 84 ML IV (11:50)
--- NOTE | 2021-12-13 12:30 | PM.PREOP ---
Pre-operative Note COVID-19 COVID-19 status: Negative Interval Note History & Physical reviewed/Exam performed by Physician: Yes Changes to H&P: No
[2021-12-13] MEDS: CEFAZOLIN 2 GM/100 ML PREMIX 100 ML IV (12:39)
--- NOTE | 2021-12-13 12:50 | SUR.OPER ---
Supine on padded OR bed, head on pillow, arm left secured on padded arm board at <90 degrees abduction, legs uncrossed, safety belt at thigh, tape over blanket over lower legs. right arm tucked at side.
[2021-12-13] MEDS: BUPIVACAINE 0.5% (PF) 30 ML, EPINEPHrine 0.15 MG INJ (12:51)
[2021-12-13 13:38] VITALS: BP 116/54; BP 144/62; PULSE 68; PULSE 77; RESP 12; RESP 14; TEMP 36.8; O2SAT 95; O2SAT 99
--- NOTE | 2021-12-13 13:39 | PM.OP.1 ---
Procedure & Clinicians Procedure: Mass excision. Open biopsy of the trunk Same procedure as scheduled: Yes Indications: Mrs. Woodson was having pain in it at a point right along her previous lap choly incision. There was a mass associated with that on physical exam. I offered her an exploration to either remove the lump or repair a small hernia if that was found. She understood the risks benefits and alternatives and wished to proceed Surgeon: Aimee Daniels Click Yes if Unassisted: Yes Anesthesia Type: MAC +/- (Local with bupivacaine and with epinephrine) Operative Notes Findings: Ms. Woodson was taken to the operative suite and placed supine on the operating room table a time-out was performed preoperative Ancef was administered and induction of a conscious sedation with the assistance of Anesthesia was induced. The abdomen was prepped and draped in the usual sterile fashion exposing the marked area of pain on her right upper quadrant. I then infused bupivacaine all around the area and made an incision in the skin using a 15 blade scalpel this incision was carried down using a combination of electrocautery and dissection with the Metzenbaum scissors to the anterior abdominal wall fascia. The fascia was palpated and inspected visually. There was no full hernia seen however there was an area where the fascia was weak and and this was palpable with a finger however the external muscle layer was intact. I palpated the subcutaneous tissues as well and there was firm rubbery lump in that area as well. I grasped the lump with an Allis clamp providing some traction and removed it using Metzenbaum scissors to come around all sides of. Specimen was sent to pathology. Finally I used a 3-0 Vicryl suture to imbricate the external fascial layer around the area previously described and bolster it. Next I used more 3-0 Vicryl sutures to close the subcutaneous tissues and 5 by 4-0 Monocryl to close the skin the wound was dressed with Steri-Strips and gauze and a Tegaderm. The patient tolerated the procedure well blood loss was minimal and she went in good condition to the postoperative care unit. Closure Type: primary Specimen(s): other (Subcutaneous tissue mass about 1 cm in size with some surrounding normal subcutaneous tissue) Complications: none Post-operative Disposition: PACU
[2021-12-13 13:43] VITALS: BP 140/65; PULSE 72; RESP 18; TEMP 36.4; O2SAT 100
== END 2021-12-13 14:19 | disposition home or self-care (01) ==
PROVIDERS: Family Provider Internal Medicine; PCP Internal Medicine; Referring Provider Surgery; Visit Provider Surgery
PROC: (CPT 22902; principal; 2021-12-13 14:15)
DX: D17.1 Benign lipomatous neoplasm of skin and subcutaneous tissue of trunk (principal); E11.40 Type 2 diabetes mellitus with diabetic neuropathy, unspecified; Z79.84 Long term (current) use of oral hypoglycemic drugs; I10 Essential (primary) hypertension; I25.10 Atherosclerotic heart disease of native coronary artery without angina pectoris
CPT/HCPCS: 22902; J0171; J0690; J3010

== ENCOUNTER 2022-11-14 10:35 | Day surgery (SDC) | payer MEDICARE, SELFPAY ==
[2022-11-14] VITALS (9 sets, daily range): BP systolic 90–124; BP diastolic 47–64; PULSE 72–93; RESP 12–18; TEMP 36.2–36.7; O2SAT 95–100; BMI 34.7
[2022-11-14] MEDS: LACTATED RINGERS 1,000 ML 100 ML IV (11:38)
--- NOTE | 2022-11-14 12:27 | PM.PREOP ---
Pre-operative Note Interval Note History & Physical reviewed/Exam performed by Physician: Yes Changes to H&P: No
[2022-11-14] MEDS: INSULIN LISPRO 100 UNIT/ML 3ML VIAL SUBCUT ×2 (12:33→14:00)
--- NOTE | 2022-11-14 13:29 | SUR.OPER ---
Lithotomy on padded OR bed, head on pillow, arms secured on padded arm boards at <90 degrees abduction. Legs secured in padded yellow fins stirrups.
--- NOTE | 2022-11-14 13:55 | PM.OP.1 ---
Operative Date/Time/Diagnoses Date of procedure: 11/14/22 Pre-op diagnosis: right perineal abscess Post-op diagnosis: same Procedure & Clinicians Procedure: incision and drainage of perineal abscess Same procedure as scheduled: Yes Indications: 82 y.o woman with a painful right perineal abscess not improving with antibiotic therapy Surgeon: Danny Whitman Click Yes if Unassisted: Yes Anesthesia Type: General Operative Notes Findings: Purulent drainage. Tract extends from perineum to subcutaneous tissue posterior to right labia majora Specimen(s): other (abscess for culture) Estimated Blood Loss (mL): 5 Procedure in detail: Patient was brought to the OR placed supine. General anesthesia induced intubated. Placed into lithotomy after sterile prep and drape. Cruciate incision made over the area of flutuance of right perineum. Cultures taken.. Wound tracts posterior to labia majora entirety of cavity about 15 cm. Wound debried. Muscle and fascia intact. Copious irrigation. Halle drain placed through counter incision and secured. Complications: none Post-operative Disposition: same day surgery Plan for aftercare: -F/u wound cultures -1 week in surgery office.
[2022-11-14] MEDS: CODEINE/ACETAMINOPHEN 30/300 TABLET 1 TAB PO (14:10)
[2022-11-14] MEDS: ONDANSETRON 4 MG/2 ML INJ IV (14:48)
--- NOTE | 2022-11-14 14:51 | SUR.PHASEII ---
Spoke with Alycia Coffey CRNA and notified blood glucose 233 half an hour after insulin given in PACU. PANTERA Coffey states patient to be discharged and no more insulin to be given.
== END 2022-11-14 15:15 | disposition home or self-care (01) ==
PROVIDERS: Family Provider Internal Medicine; PCP Internal Medicine; Referring Provider Surgery; Visit Provider Surgery
PROC: (CPT 46040; principal; 2022-11-14 12:30)
DX: L02.215 Cutaneous abscess of perineum (principal); I25.2 Old myocardial infarction; E11.22 Type 2 diabetes mellitus with diabetic chronic kidney disease; N18.30 Chronic kidney disease, stage 3 unspecified; Z79.84 Long term (current) use of oral hypoglycemic drugs
CPT/HCPCS: 10061; 82962; 87070; 87075; 87077; 87205; J1815; J2405; J2704; J3010

== ENCOUNTER → 2022-12-12 13:35 | Outpatient (CLI) | payer MEDICARE, SELFPAY | PROVIDERS: Family Provider Internal Medicine; PCP Internal Medicine; Referring Provider Surgery; Visit Provider Physician Assistant | DX: E11.628 Type 2 diabetes mellitus with other skin complications (principal); L02.215 Cutaneous abscess of perineum | CPT/HCPCS: 99204; 99213 ==

== ENCOUNTER → 2023-05-05 11:40 | Outpatient (CLI) | payer MEDICARE, SELFPAY ==
--- NOTE | 2023-05-05 | DI.RAD.S_ITS ---
Bone Density Report Name: DAWNA MALIK Age: 83 Sex: Female Ethnicity: White Date of : 1940 Indication: postmenopausal; screening for osteoporosis; Referring Provider: EVIE WATSON Study: Bone densitometry was performed. Exam Date: May 05, 2023 Accession number: [id number] Bone Density: Region BMD T-score Z-score Classification AP Spine(L1-L4) 1.270 2.0 4.8 Normal Femoral Neck (Left) 0.802 -0.4 1.9 Normal Total Hip (Left) 0.939 0.0 2.1 Normal Femoral Neck (Right) 0.799 -0.5 1.9 Normal Total Hip (Right) 0.948 0.0 2.2 Normal Total Hip Mean 0.943 0.0 2.2 Normal World Health Organization criteria for BMD impression classify patients as: Normal (T-score at or above -1.0), Osteopenia (T-score between -1.0 and -2.5), or Osteoporosis (T-score at or below -2.5). 10-year Fracture Risk: FRAX not reported because: All T-scores for Spine Total, Hip Total, Femoral Neck at or above -1.0 Previous Exams: -- Region Exam Age BMD T-score BMD Change BMD Change Date g/cm2 vs Baseline vs Previous -- AP Spine (L1-L4) 05/05/2023 83 1.270 2.0 0.003 (0.3%)# -0.004 (-0.3%)# 07/21/2014 74 1.274 2.1 0.007 (0.6%) 0.007 (0.6%) 08/23/2009 69 1.267 2.0 Total Hip(Left) 05/05/2023 83 0.939 0.0 -0.269 (-22.3%)# -0.137 (-12.7%)# 07/21/2014 74 1.076 1.1 -0.132 (-10.9%)* -0.132 (-10.9%)* 08/23/2009 69 1.208 2.2 Total Hip(Right) 05/05/2023 83 0.948 0.0 -0.214 (-18.4%)# -0.104 (-9.9%)# 07/21/2014 74 1.052 0.9 -0.110 (-9.5%)* -0.110 (-9.5%)* 08/23/2009 69 1.162 1.8 -- *Denotes significance at 95% confidence level, LSC for AP Spine = 0.022 g/cm2, LSC for Total Hip = 0.027 g/cm2 # Denotes dissimilar scan types or analysis methods Impression: The patient has normal bone mass. No significant bone loss was observed. Discussion: BONE DENSITY IS ABOVE THE MINIMUM DESIRABLE LEVEL AT ALL SKELETAL SITES TESTED. This patient's bone mineral density is above the minimum desirable level (T-score -1.0 or better) at all sites measured. The patient should follow a healthful lifestyle (good nutrition with adequate calcium and vitamin D, and appropriate weight-bearing exercise). Follow-Up: Consider repeating this study in 5 years or sooner if there is some new clinical indication. Reported by: DEBBIE STODDARD M.D. on 05/05/2023 12:10:00 PM.
== END ==
PROVIDERS: Family Provider Internal Medicine; PCP Internal Medicine; Referring Provider Internal Medicine; Visit Provider Internal Medicine
DX: Z78.0 Asymptomatic menopausal state (principal); Z13.820 Encounter for screening for osteoporosis
CPT/HCPCS: 77080